=== PATIENT | female | born 1995 | race American Indian/Alaskan Native ===

== ENCOUNTER 2016-11-25 15:25 | Emergency (ER) | payer OTHER ==
[2016-11-25 15:37] VITALS: BP 133/76
--- NOTE | 2016-11-25 16:15 | XRay Report ---
LEFT HAND RADIOGRAPHS INDICATION: Injury to left middle finger tip and left fourth finger. COMPARISON: None similar at this institution. FINDINGS: AP and lateral left hand radiographs demonstrate intact bony articulation. No suspicious erosions. Subtle nondisplaced fourth digit tuft fracture incidentally noted to a better advantage on the lateral view. Slight overlying soft tissue swelling/prominence also possible. CONCLUSION: Nondisplaced left fourth digit tuft fracture, as described. Thank you for the opportunity to participate in this patient's care.
[2016-11-25] MEDS ORDERED: XYLOCAINE 2% INFILTRATI ONE ×2 (17:13→18:10)
[2016-11-25] MEDS ORDERED: NACL 0.9% 500 ML IR ONE (17:14)
[2016-11-25] MEDS ORDERED: TENIVAC IM ONE (18:10)
[2016-11-25] MEDS ORDERED: BOOSTRIX IM ONE (18:14)
--- NOTE | 2016-11-25 18:16 | Emergency Department Report ---
ED Laceration HPI - HPI Chief Complaint: Laceration/Recheck/Suture Stated Complaint: FINGER LAC Time Seen by Provider: 11/25/16 17:54 Occurred When: Today Location: Upper Extremity (left distal ring finger) Laceration Symptoms: Yes Pain, No Foreign Body Sensation, No Numbness, No Weakness Other History: 21 year old female states that her left ring finger was caught in an AC unit and lacerated through the nail bed. states bleeding has subsided. states that she has full rom of finger. denies other injury. states tetanus is not utd. ED Review of Systems ROS: Stated complaint: FINGER LAC Other details as noted in HPI Constitutional: denies: chills, fever Eyes: denies: eye pain, eye discharge, vision change ENT: denies: ear pain, throat pain Respiratory: denies: cough, shortness of breath, wheezing Cardiovascular: denies: chest pain, palpitations Endocrine: no symptoms reported Gastrointestinal: denies: abdominal pain, nausea, diarrhea Genitourinary: denies: urgency, dysuria, discharge Musculoskeletal: denies: back pain, joint swelling, arthralgia Skin: other. denies: rash, lesions Neurological: denies: headache, weakness, paresthesias Psychiatric: denies: anxiety, depression Hematological/Lymphatic: denies: easy bleeding, easy bruising ED Past Medical Hx - Past Medical History Previous Medical History?: No - Surgical History Past Surgical History?: No - Social History Smoking Status: Current Some Day Smoker Substance Use Type: Alcohol - Medications Home Medications: Home Medications Medication Instructions Recorded Confirmed Last Taken Type Cephalexin [Keflex] 500 mg PO Q6HR #28 capsule 11/25/16 Unknown Rx traMADol [Ultram 50 MG tab] 50 mg PO Q6HR PRN #14 tablet 11/25/16 Unknown Rx Laceration Physical Exam - Exam General: Vital signs noted. No distress. Alert and acting appropriately. Wound Length (cm): 2 Laceration Location: Upper Extremity (leftdistal ring finger nail bed) Laceration Exam: Yes Normal Distal CMS, No Foreign Body, No Exposed Tendon, Vessel, or Nerve, No Tendon Injury ED Course Vital Signs 11/25/16 15:34 Temperature 99.0 F Pulse Rate 96 H Respiratory 20 Rate Blood Pressure 133/76 O2 Sat by Pulse 100 Oximetry - Procedure Description Procedures done: laceraetion is about 2 cm on left distal ring finger nail. betadine used to cleanse area. 2% lidocaine used to do digital block of finger with full anesthesia achieved. 500ml NS used to irrigate the finger. 4-0 prolene used to suture. 2 sutures placed. tolerated procedure well. ED Medical Decision Making - Medical Decision Making patient resting comfortably. distal tuft fracture seen on XR. will start on keflex. VSS for DC. Critical care attestation.: If time is entered above; I have spent that time in minutes in the direct care of this critically ill patient, excluding procedure time. ED Disposition Clinical Impression: Laceration of left ring finger with damage to nail, Open fracture of distal phalangeal tuft Disposition: DC-01 TO HOME OR SELFCARE Is pt being admited?: No Does the pt Need Aspirin: No Condition: Good Instructions: Laceration (ED) Additional Instructions: keep clean and dry with soap and water. come back in 10 days fur suture removal. Prescriptions: Cephalexin [Keflex] 500 mg PO Q6HR #28 capsule traMADol [Ultram 50 MG tab] 50 mg PO Q6HR PRN #14 tablet PRN Reason: Pain Referrals: PRIMARY CARE,MD [Primary Care Provider] - 3-5 Days Forms: Work/School Release Form(ED) Time of Disposition: 18:21
== END 2016-11-25 18:46 | disposition home or self-care (01) ==
LOC: ED 15:25
DX: S62.635B Displaced fracture of distal phalanx of left ring finger, initial encounter for open fracture (principal); S61.314A Laceration without foreign body of right ring finger with damage to nail, initial encounter; F17.200 Nicotine dependence, unspecified, uncomplicated; W23.0XXA Caught, crushed, jammed, or pinched between moving objects, initial encounter; Y93.89 Activity, other specified; Y99.8 Other external cause status; Y92.89 Other specified places as the place of occurrence of the external cause
CPT/HCPCS: 90471; 90714; 90715